=== PATIENT | female | born 1965 | race Caucasian/White ===

== ENCOUNTER 2016-11-21 14:58 | Emergency (ER) | payer SELFPAY ==
[2016-11-21] MEDS ORDERED: ASPIRIN 81 MG TABLET, CHEWABLE PO ONE (15:22)
--- NOTE | 2016-11-21 15:55 | ER Document Report ---
Doctor's Note Notes: 11/21/16 15:54 I have greeted and performed a rapid initial assessment of this patient. A comprehensive ED assessment and evaluation of the patient, analysis of test results and completion of the medical decision making process will be conducted by additional ED providers. 51-year-old female presents with complaints of chest pain as well as ecchymosis after donating plasma. Skin: Ecchymosis bilateral antecubital Heart: Regular rate and rhythm no murmur noted
[2016-11-21 15:57] LABS: ABSOLUTE EOSINOPHILS # (AUTO) 0.1 10^3/uL (0.0-0.6); ABSOLUTE LYMPHOCYTES (AUTO) 2.2 10^3/uL (0.5-4.7); ABSOLUTE MONOCYTES (AUTO) 0.7 10^3/uL (0.1-1.4); BASOPHILS % (AUTO) 0.4 % (0-2); EOSINOPHILS % (AUTO) 1.2 % (0-6); HEMATOCRIT 42.6 % (36.0-47.0); HEMOGLOBIN 14.3 g/dL (12.0-15.5); HGB HCT DIFFERENCE 0.3; LYMPHOCYTES % (AUTO) 18.4 % (13-45); MEAN CORPUSCULAR HEMOGLOBIN 28.8 pg (27.0-33.4); MEAN CORPUSCULAR HGB CONC 33.6 g/dL (32.0-36.0); MEAN CORPUSCULAR VOLUME 86 fl (80-97); RED BLOOD COUNT 4.97 10^6/uL (3.72-5.28); WHITE BLOOD COUNT 12.1 10^3/uL (4.0-10.5)
[2016-11-21 16:16] LABS: ALANINE AMINOTRANSFERASE 31 U/L (9-52); ALBUMIN 4.5 g/dL (3.5-5.0); ALKALINE PHOSPHATASE 65 U/L (38-126); ANION GAP 13 (5-19); ASPARTATE AMINO TRANSFERASE 20 U/L (14-36); BILIRUBIN,DIRECT 0.2 mg/dL (0.0-0.4); BILIRUBIN,TOTAL 0.8 mg/dL (0.2-1.3); BLOOD UREA NITROGEN 12 mg/dL (7-20); CALCIUM 9.7 mg/dL (8.4-10.2); CARBON DIOXIDE 28 mmol/L (22-30); CHLORIDE 105 mmol/L (98-107); CREATINE KINASE 77 U/L (30-135); CREATININE RESULT 0.72 mg/dL (0.52-1.25); GLUCOSE 87 mg/dL (75-110); POTASSIUM 4.2 mmol/L (3.6-5.0); SODIUM 146.3 mmol/L (137-145); TOTAL PROTEIN 7.1 g/dL (6.3-8.2)
[2016-11-21 16:28] LABS: CREATINE KINASE MB 0.65 ng/mL (<4.55)
[2016-11-21 16:38] LABS: TROPONIN I < 0.012 ng/mL
--- NOTE | 2016-11-21 18:05 | ER Document Report ---
ED Cardiac - General Chief Complaint: Chest Pain Stated Complaint: CHEST PAIN Information source: Patient Notes: Patient is a 51-year-old female with past medical history of high blood pressure who presents today stating on Wednesday she gave blood plasma for money. She states she's been going through a lot of stress in her life lately. She states the IV "blew" in the left arm and she started to have some pain and swelling to the left arm after the procedure. She states the swelling has improved but she now has a lot of "bruising" to the left arm. She states she is fully able to flex and extend her arm. She states the pain is not changed but the swelling is decreased. She is concerned about the bruising. Patient also states today on review of systems that she's had some intermittent "chest fluttering". She denies any real chest pain on my examination. She denies any nausea, vomiting, fevers, calf pain or leg swelling. She moved here 1 month ago and has not traveled since that time. Patient is a smoker and she does state her brother had a heart attack in early age but he did have a "heart transplant". TRAVEL OUTSIDE OF THE [place] IN LAST 30 DAYS: No - HPI Patient complains to provider of: Other - See above Was the onset of pain: Gradual Chest pain location: Substernal Quality of pain: Other - See above Severity now: None Severity at worst: Mild Pain level currently: Denies Cardiac risk factors: Hypertension Positive cardiac history: No Associated symptoms: Other - See above Exacerbated by: Denies Relieved by: Nothing - Related Data Allergies/Adverse Reactions: No Known Allergies Allergy (Verified 11/21/16 15:02) Past Medical History - General Information source: Patient - Social History Smoking Status: Current Some Day Smoker Cigarette use (# per day): No Chew tobacco use (# tins/day): No Smoking Education Provided: No Frequency of alcohol use: None Drug Abuse: None Family History: Reviewed & Not Pertinent Patient has suicidal ideation: No Patient has homicidal ideation: No - Past Medical History Cardiac Medical History: Reports: Hx Hypertension Renal/ Medical History: Denies: Hx Peritoneal Dialysis Surgical Hx: Negative Review of Systems - Review of Systems Constitutional: denies: Fever EENT: denies: Eye discharge, Nose discharge Cardiovascular: denies: Chest pain, Palpitations, Heart racing Respiratory: denies: Cough, Short of breath Gastrointestinal: denies: Abdominal pain, Vomiting Musculoskeletal: denies: Leg swelling Skin: Other - no hives. denies: Rash Neurological/Psychological: Other - no slurred speech -: Yes All other systems reviewed and negative Physical Exam - Vital signs Vitals: Temp Pulse Resp BP Pulse Ox 99.2 F 76 18 155/94 H 97 11/21/16 15:02 11/21/16 15:02 11/21/16 15:02 11/21/16 15:02 11/21/16 15:02 Notes: Reviewed vital signs and nursing note as charted by RN. CONSTITUTIONAL: Alert and oriented and responds appropriately to questions. Well -appearing; well-nourished HEAD: Normocephalic; atraumatic CARD: Regular rate and rhythm; no murmurs, no clicks, no rubs, no gallops; symmetric distal pulses RESP: Normal chest excursion without splinting or tachypnea; breath sounds clear and equal bilaterally; no wheezes, no rhonchi, no rales ABD/GI: Normal bowel sounds; non-distended; soft, non-tender, no rebound, no guarding; no palpable organomegaly or masses BACK: The back appears normal and is non-tender to palpation, there is no CVA tenderness EXT: Patient has some bruising to the dorsal aspect of the left elbow and forearm and humerus region. No tenderness to palpation. Full range of motion. Neurovascular intact distally. No calf pain or leg swelling. SKIN: Normal color for age and race; warm; dry; good turgor; capillary refill < 2 seconds; no acute lesions noted NEURO: Moves all extremities equally; Motor and sensory function intact PSYCH: The patient's mood and manner are appropriate. Grooming and personal hygiene are appropriate. Course - Re-evaluation Re-evalutation: 11/21/16 18:07 Given the history and physical examination I do believe pulmonary embolism and aortic dissection to be extremely unlikely. Patient has been going through a lot of stressful events recently, heart score less than equal to 3, with a normal first troponin. Doppler of the left upper extremity has been ordered for completeness. We will also do a repeat troponin 3 hours after the initial troponin. EKG shows a heart of 71, normal sinus rhythm, normal axis, no obvious ST elevation or depression, inverted T-wave in lead 3. Flattening T waves in leads aVF V4 through V6. 11/21/16 19:10 First set of cardiac enzymes unremarkable. Second is pending. Patient still denies any current chest pain. DVT Doppler study is negative for acute clot in the left arm. 11/21/16 19:12 Chest x-ray shows normal heart, normal mediastinum, no fractures, normal lung restrepo, no pneumothorax. 11/21/16 19:50 repeat troponin as recorded. Patient still has no chest pain. Patient will be discharged home with strict return precautions and follow-up. Patient understands these instructions. - Vital Signs Vital signs: Temp Pulse Resp BP Pulse Ox 99.2 F 76 16 161/99 H 99 11/21/16 15:02 11/21/16 15:02 11/21/16 19:07 11/21/16 19:07 11/21/16 19:07 - Laboratory Result Diagrams: 11/21/16 15:23 11/21/16 15:23 Laboratory results interpreted by me: 11/21/16 11/21/16 15:23 15:23 WBC 12.1 H RDW 15.0 H Absolute Neutrophils 9.0 H Sodium 146.3 H Discharge - Discharge Clinical Impression: Arm bruise Qualifiers: Encounter type: initial encounter Laterality: left Qualified Code(s): S40.022A - Contusion of left upper arm, initial encounter Chest pain Qualifiers: Chest pain type: unspecified Qualified Code(s): R07.9 - Chest pain, unspecified Additional Instructions: Come back immediately with any increased pain, swelling, weakness or numbness to your arm, any return of chest pain, change in location or quality of pain, leg swelling, fevers, shortness of breath, or any other acute problems. Please follow-up with the case packer and sealer as we have discussed. Referrals: CLARISSA IBRAHIM MD [ACTIVE STAFF] - Follow up as needed
[2016-11-21 19:09] VITALS: BP 161/99
--- NOTE | 2016-11-22 00:05 | EKG REPORT ---
SEVERITY:- BORDERLINE ECG - SINUS RHYTHM BORDERLINE T ABNORMALITIES, DIFFUSE LEADS : Confirmed by: Melissa Tam 22-Nov-2016 00:04:47
--- NOTE | 2016-11-22 17:42 | XCELERA REPORT ---
[address] [address] Upper Extremity Venous Evaluation Name: PEDRO REILLY Age: 51 yrs Gender: Female : 1965 Patient Status: Emergency Patient Location: ER Study Date: 11/21/2016 06:09 PM Procedure: Unilateral duplex scan of the left upper extremity veins was performed, including responses to compression and other maneuvers. Reason For Study: left UPPER extremity swelling Ordering Physician: JULIANA CERDA Performed By: Brennon Jones Left Sided Venous Evaluation Normal vessel filling wall to wall, compression and augmentation as well as Colour flow down to the forearm veins. Critical Findings Called in to the ER. Interpretation Summary No duplex evidence of DVT or obstruction in the left upper extremity. : JULIANA CERDA > Rodríguez Hollis
== END 2016-11-21 19:57 | disposition home or self-care (01) ==
LOC: ER 14:58
DX: R07.89 Other chest pain (principal); S50.12XA Contusion of left forearm, initial encounter; S40.022A Contusion of left upper arm, initial encounter; X58.XXXA Exposure to other specified factors, initial encounter; I10 Essential (primary) hypertension; Z82.49 Family history of ischemic heart disease and other diseases of the circulatory system; Z98.890 Other specified postprocedural states
CPT/HCPCS: 36415; 71010; 80053; 82550; 82553; 84484; 85025; 93005; 93010; 93971; 99285